=== PATIENT | female | born 1945 | race Caucasian/White ===

== ENCOUNTER → 2017-03-17 | Outpatient (CLI) | payer MEDICARE | END | disposition home or self-care (01) | LOC: CFH 08:19 | PROVIDERS: ATTEND Internal Medicine Critical Care Medicine | DX: J18.9 Pneumonia, unspecified organism (principal); J98.4 Other disorders of lung; R91.8 Other nonspecific abnormal finding of lung field | CPT/HCPCS: 71250 ==

== ENCOUNTER → 2018-08-16 | Outpatient (CLI) | payer MEDICARE | END | disposition home or self-care (01) | LOC: CFH 09:09 | DX: Z13.820 Encounter for screening for osteoporosis (principal); M81.0 Age-related osteoporosis without current pathological fracture; N95.9 Unspecified menopausal and perimenopausal disorder | CPT/HCPCS: 77080 ==

== ENCOUNTER → 2020-08-14 | Outpatient (CLI) | payer MEDICARE | END | disposition home or self-care (01) | LOC: RAD 14:22 | PROVIDERS: ATTEND Family Medicine | DX: R10.9 Unspecified abdominal pain (principal); Z90.49 Acquired absence of other specified parts of digestive tract | CPT/HCPCS: 74021 ==

== ENCOUNTER 2020-09-30 09:20 | Emergency (ER) | payer MEDICARE ==
[~2020-09-30] VITALS: Ht 162.6 cm; Wt 70.0 kg
--- NOTE | 2020-09-30 10:05 | NUR ---
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
--- NOTE | 2020-09-30 10:06 | NUR ---
INTERMITTENT, SHARP "ANNOYING" CP X2-3 DAYS. DENIES CARDIAC HX. Ecg in triage VSS. No radiation of pain "My and I've been reallysad/stressed."
--- NOTE | 2020-09-30 10:28 | NUR ---
PT REPORTS INTERMITTENT SHARP LT SIDED CP. DENIES LIGHTHEADENESS, DIZZINESS, CARDIAC HX, SOB. C/O GERD, HAS HX OF GERD. SPOUSE OCTOBER 2019, REPORTS BEING UNDER "A LOT OF STRESS". RESP EVEN & UNLABORED, SPEECH CLEAR, SKIN WNL. 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
[2020-09-30] MEDS ORDERED: SIMVASTATIN (10:32)
--- NOTE | 2020-09-30 10:32 | NUR ---
SARAH AT FOR EXAM. PT REPORTS ONLY CURRENT SX IS ANXIETY. STATES SHE RESEARCHED HER SX ON THE INTERNET "AND EVERYTHING POINTS TO COVID". "I'D LIKE TO BE TESTED FOR COVID." Addendum: 09/30/20 at 1035 by SIRISHA TOOK ASA YESTERDAY, NONE TODAY
[2020-09-30] MEDS ORDERED: ASPIRIN 81 MG TABLET CHEW PO ONE (11:00)
[2020-09-30] MEDS ORDERED: ASPIRIN 81 MG TABLET CHEW ONE (11:04)
--- NOTE | 2020-09-30 11:06 | NUR ---
PT RESTING QUIETLY, READING A BOOK, MONITORING CONTINUING, SIDE RAIL UP X1, CALL LIGHT W/IN REACH.
[2020-09-30 11:18] LABS: BASOPHILS % (AUTO) 1 % (0-1); EOSINOPHILS % (AUTO) 4 % (1-7); LYMPHOCYTES % (AUTO) 32 % (22-44); MEAN CORPUSCULAR HEMOGLOBIN 28.4 pg (27.0-34.8); MEAN CORPUSCULAR HGB CONC 33.1 g/dL (32.4-35.8); MEAN PLATELET VOLUME 9.8 fL (7.4-10.4); MONOCYTES % (AUTO) 7 % (2-9); NEUTROPHILS % (AUTO) 57 % (42-75); PLATELET COUNT 277 x10^3/uL (130-400); RED BLOOD COUNT 5.27 x10^6/uL (3.82-5.3); RED CELL DISTRIBUTION WIDTH 14.9 % (9.6-15.2)
[2020-09-30 11:24] LABS: MD NO
[2020-09-30 11:27] LABS: ALANINE AMINOTRANSFERASE 18 U/L (12-78); ALBUMIN 3.9 g/dL (3.4-5.0); ANION GAP 6 mmol/L (5-15); CALCIUM 9.2 mg/dL (8.5-10.1); CHLORIDE 113 mmol/L (98-107)
[2020-09-30 11:32] LABS: ALKALINE PHOSPHATASE 127 U/L (45-117); BILIRUBIN,TOTAL 0.4 mg/dL (0.2-1.0); TOTAL PROTEIN 7.6 g/dL (6.4-8.2); TROPONIN I < 0.015 ng/mL (0.000-0.045)
--- NOTE | 2020-09-30 13:08 | NUR ---
RESTING QUIETLY, READING HER BOOK. REPORTS INTERMITTENT PAIN. DENIES DYSPNEA, SOB. SENSE OF SMELL AND TASTE INTACT.
--- NOTE | 2020-09-30 13:10 | NUR ---
COVID SPECIMEN OBTAINED PER DR GONZALES.
[2020-09-30 13:53] VITALS: BP 165/75
== END 2020-09-30 14:02 | disposition home or self-care (01) ==
LOC: ED 10:13
DX: R07.89 Other chest pain (principal); Z20.828 Contact with and (suspected) exposure to other viral communicable diseases; R94.31 Abnormal electrocardiogram [ECG] [EKG]; I10 Essential (primary) hypertension; K21.9 Gastro-esophageal reflux disease without esophagitis
CPT/HCPCS: 36415; 71045; 80053; 83690; 83880; 84484; 85025; 87635; 93005; 99285